=== PATIENT | male | born 1955 | race Caucasian/White ===

== ENCOUNTER 2017-10-17 17:36 | Inpatient (IN) | payer BC, OTHER ==
[~2017-10-17] VITALS: Ht 167.6 cm; Wt 86.7 kg
[2017-10-17 17:43] VITALS: Ht 167.6 cm; Wt 86.7 kg
[2017-10-17 18:38] LABS: BASOPHIL % 0.7 % (0-2); PLATELET COUNT 193 x10^3mcL (130-400); RED CELL DISTRIBUTION WIDTH 13.2 % (11.5-14.5)
[2017-10-17 18:41] LABS: CALCIUM 8.9 mg/dL (8.5-10.1); CARBON DIOXIDE 24.6 mmol/L (21-32); CHLORIDE SERUM 107 mmol/L (98-107); CREATININE SERUM 1.1 mg/dL (0.7-1.3); GFR1 > 60 mL/min; GLUCOSE SERUM 120 mg/dL (74-106); POTASSIUM SERUM 3.8 mmol/L (3.5-5.1); SODIUM SERUM 137 mmol/L (136-145)
[2017-10-17 18:45] LABS: ALBUMIN 3.9 g/dL (3.4-5.0); ALKALINE PHOSPHATASE 85 U/L (46-116); ALT/SGPT 67 U/L (16-63); AST/SGOT 42 U/L (15-37); BILIRUBIN TOTAL 1.7 mg/dL (0.20-1.00); LIPASE 282 IU/L (73-393); TOTAL PROTEIN, SERUM 7.7 g/dL (6.4-8.2)
[2017-10-17 18:50] LABS: AMPHETAMINE QUAL UR NONE DETECTED (See below)
[2017-10-17] MEDS ORDERED: METOPROLOL TART25 M1 PO (20:02)
[2017-10-17] MEDS ORDERED: LOSARTAN POTASS25 M1 PO (20:02)
[2017-10-17] MEDS ORDERED: ASPIR LOW81 MG PO (20:03)
[2017-10-17] MEDS ORDERED: AMLODIPINE BES2.5 M1 PO (20:03)
[2017-10-17] MEDS ORDERED: NIASPAN500 MG PO (20:03)
[2017-10-17 21:02] LABS: microscopic required? NO
[2017-10-17 21:10] LABS: UA SPECIFIC GRAVITY 1.025 (1.005-1.035); urine erythrocyte NEGATIVE (NEGATIVE)
[2017-10-17 21:14] VITALS: BP 149/86
[2017-10-17 21:19] LABS: MAGNESIUM 2.2 mg/dL (1.8-2.4); PHOSPHOROUS 2.6 mg/dL (2.5-4.9)
[2017-10-17 21:27] LABS: T3 TOTAL 1.17 ng/mL
[2017-10-17 21:29] LABS: FREE T4 0.99 ng/dL (0.76-1.46); FREE THYROXINE INDEX 2.5 ug/dL (1.4-4.5)
[2017-10-18 05:23] VITALS: BP 105/69
[2017-10-18 06:32] LABS: CALCIUM 8.3 mg/dL (8.5-10.1); CARBON DIOXIDE 25.4 mmol/L (21-32); CHLORIDE SERUM 108 mmol/L (98-107); GFR1 > 60 mL/min; GLUCOSE SERUM 112 mg/dL (74-106); MAGNESIUM 2.1 mg/dL (1.8-2.4); PHOSPHOROUS 2.9 mg/dL (2.5-4.9); POTASSIUM SERUM 3.8 mmol/L (3.5-5.1); SODIUM SERUM 142 mmol/L (136-145)
[2017-10-18 07:01] LABS: CHOLESTEROL 162 mg/dL (<200); CHOLESTEROL/HDL RATIO 5.1; HDL CHOLESTEROL 32 mg/dL (40-60); TRIGLYCERIDES 127 mg/dL (<150)
[2017-10-18 07:11] LABS: BASOPHIL % 0.5 % (0-2); PLATELET COUNT 174 x10^3mcL (130-400); RED CELL DISTRIBUTION WIDTH 13.2 % (11.5-14.5)
[2017-10-18 09:11] VITALS: BP 104/68
[2017-10-18 09:13] VITALS: BP 121/77
[2017-10-18 13:54] VITALS: BP 135/86
== END 2017-10-18 16:50 | disposition left against medical advice (07) | DRG 206 ==
LOC: ED 17:36 → DU 20:38
PROVIDERS: Emergency Medicine; Family Medicine
DX: M94.0 Chondrocostal junction syndrome [Tietze] (principal); I10 Essential (primary) hypertension; E78.5 Hyperlipidemia, unspecified; R73.03 Prediabetes; R74.0 Nonspecific elevation of levels of transaminase and lactic acid dehydrogenase [LDH]; E66.9 Obesity, unspecified; F41.9 Anxiety disorder, unspecified; R00.0 Tachycardia, unspecified; Z53.21 Procedure and treatment not carried out due to patient leaving prior to being seen by health care provider; K21.9 Gastro-esophageal reflux disease without esophagitis; Z90.49 Acquired absence of other specified parts of digestive tract; Z79.899 Other long term (current) drug therapy; Z83.3 Family history of diabetes mellitus; Z68.30 Body mass index [BMI] 30.0-30.9, adult
CPT/HCPCS: 83880; 84439; J7030; Q0092

== ENCOUNTER 2020-05-22 20:16 | Emergency (ER) | payer BC, OTHER ==
[~2020-05-22] VITALS: Ht 167.6 cm; Wt 83.5 kg
[~2020-05-22 20:16] MED LIST: AMLODIPINE BES2.5 M1 PO; ASPIR LOW81 MG PO; LOSARTAN POTASS25 M1 PO; METOPROLOL TART25 M1 PO; NIASPAN500 MG PO
[2020-05-22 20:20] VITALS: Ht 167.6 cm; Wt 83.5 kg
[2020-05-22 21:14] VITALS: BP 137/83
== END 2020-05-22 21:58 | disposition home or self-care (01) ==
LOC: ED 20:16
DX: T18.128A Food in esophagus causing other injury, initial encounter (principal); I10 Essential (primary) hypertension; W45.8XXA Other foreign body or object entering through skin, initial encounter; Y93.89 Activity, other specified; Y92.89 Other specified places as the place of occurrence of the external cause; Y99.8 Other external cause status
CPT/HCPCS: J1610